=== PATIENT | male | born 1990 | race African-American/Black ===

== ENCOUNTER 2022-10-12 18:13 | Emergency (ER) | payer SELFPAY ==
[~2022-10-12] VITALS: Ht 175.3 cm; Wt 77.0 kg
[2022-10-12 18:18] VITALS: BP 129/81
[2022-10-12 19:18] LABS: BASOPHILS % 0.8 % (0.0-2.0); EOSINOPHILS % 1.1 % (0.0-5.0); HEMATOCRIT. 41.9 % (42.0-52.0); HEMOGLOBIN. 14.1 g/dL (14.0-18.0); LYMPHOCYTES % 48.8 % (20.0-50.0); MEAN CORPUSCULAR HEMOGLOBIN 36.9 pg (28.0-32.0); MEAN CORPUSCULAR VOLUME 109.8 fL (80.0-94.0); MEAN PLATELET VOLUME 6.6 fl (7.4-10.4); MONOCYTES % 5.1 % (2.0-8.0); NEUTROPHILS % 44.2 % (40.0-76.0); PLATELET 313 x1000/uL (130-400); RED BLOOD CELL COUNT 3.81 mill/uL (4.7-6.1); RED CELL DISTRIBUTION WIDTH 14.4 % (11.6-14.6)
== END 2022-10-12 19:41 | disposition left against medical advice (07) ==
LOC: ER 18:13
DX: F10.129 Alcohol abuse with intoxication, unspecified (principal); Z13.9 Encounter for screening, unspecified; Y90.9 Presence of alcohol in blood, level not specified
CPT/HCPCS: 36415; 80053; 80307; 80320; 80329; 82140; 85025; 99283; G0480